=== PATIENT | female | born 2000 | race Caucasian/White ===

== ENCOUNTER 2023-08-02 17:15 | Emergency (ER) | payer BC, SELFPAY ==
[2023-08-02 17:21] VITALS: BP 143/79; PULSE 98; RESP 16; TEMP 37.4; O2SAT 98; BMI 25.8
--- NOTE | 2023-08-02 18:28 | ED_ITS ---
HPI - General Adult General Chief complaint: Sore Throat Stated complaint: Flu symptoms--sore throat, body aches Time Seen by Provider: 08/02/23 17:18 History of Present Illness HPI narrative: This 23-year-old female comes in reporting sore throat with body aches and feeling feverish. She does arrive here with normal vital signs. She did take some Tylenol prior to arrival. She states that symptoms began this morning. She went to her student health [facility] twice today because of these symptoms and was instructed to come here. She did have testing for strep, influenza, COVID, and mononucleosis. All of these returned negative. Related Data Home Medications ?Medication ?Instructions ?Recorded ?Confirmed fluoxetine 40 mg capsule 40 mg PO DAILY 08/02/23 08/02/23 Previous Rx's ?Medication ?Instructions ?Recorded amoxicillin 500 mg capsule 500 mg PO TID 7 days #21 caps 08/02/23 ketorolac 10 mg tablet 10 mg PO Q8H 5 days #15 tabs 08/02/23 Allergies Allergy/AdvReac Type Severity Reaction Status Date / Time No Known Drug Allergies Allergy Verified 08/02/23 17:21 Review of Systems Status of ROS: Reports: 10 or more systems reviewed and unremarkable except as noted in History and below Narrative: Constitutional: No weight gain or loss. Eyes: No discharge. No vision changes. HENT: No congestion, no ear pain. Cardiovascular: No chest pain, no palpitations. Respiratory: No shortness of breath, no wheezes, no cough. Gastrointestinal: No abdominal pain, no vomiting, no diarrhea. Genitourinary: No dysuria, no hematuria. Musculoskeletal: Normal range of motion. Skin: No rashes, no pruritis. Neurological: No dizziness, weakness, sensory change, speech change. Endo/Heme/Allergies: No bruising or bleeding. No polydipsia. Pysch: no suicidality, no anxiety, no insomnia. All other systems reviewed and are negative. Exam Narrative: Exam Narrative: Constitutional: Well-developed, well-nourished, no acute distress. HEENT: Normocephalic, atraumatic. Oropharynx shows bilateral tonsillar hypertrophy with some small amount of exudate. Neck: Normal range of motion. Nontender. Supple. Heart: Regular. No murmurs. Normal rate. Intact distal pulses. Lungs: Clear to auscultation. No chest discomfort. No wheezes, rhonchi, or rales. Abdomen: Normal bowel sounds. Nontender. No rebound tenderness. Genitalia: Deferred. Back: No midline tenderness. Normal range of motion. Extremities: Normal range of motion. No injury. Skin: Intact. No rash. Warm. No erythema or pallor. Neurologic: No altered sensation. No weakness. Alert and oriented. Psychiatric: No suicidality. No anxiety or depression. No insomnia. Nursing notes and vitals signs are reviewed. Const: Vital Signs, click to edit/add: Vital Signs - 24 hr 08/02/23 17:21 Temperature 99.4 F Pulse Rate [Pulse Oximeter] 98 Respiratory Rate 16 Blood Pressure [[facility] [place] [place]] 143/79 H Pulse Oximetry 98 Oxygen Delivery Me thod Room Air Course Vital Signs Vital signs: Initial Vital Signs Temperature 99.4 F 08/02/23 17:21 Temperature Source Temporal Artery Scan 08/02/23 17:21 Pulse Rate 98 08/02/23 17:21 Respiratory Rate 16 08/02/23 17:21 Blood Pressure 143/79 H 08/02/23 17:21 Blood Pressure Mean 100 08/02/23 17:21 Blood Pressure Position Sitting 08/02/23 17:21 Pulse Oximetry 98 08/02/23 17:21 Oxygen Delivery Method Room Air 08/02/23 17:21 Vital Signs Temperature 99.4 F 08/02/23 17:21 Pulse Rate 98 08/02/23 17:21 Respiratory Rate 16 08/02/23 17:21 Blood Pressure 143/79 H 08/02/23 17:21 Pulse Oximetry 98 08/02/23 17:21 Oxygen Delivery Method Room Air 08/02/23 17:21 Temperature 99.4 F 08/02/23 17:21 Pulse Rate 98 08/02/23 17:21 Respiratory Rate 16 08/02/23 17:21 Blood Pressure 143/79 H 08/02/23 17:21 Pulse Oximetry 98 08/02/23 17:21 Oxygen Delivery Method Room Air 08/02/23 17:21 Medical Decision Making MDM Narrative Medical decision making narrative: This patient comes in with sore throat and body aches as described above. She has had testing with negative results for strep and other viral infections. On exam she does have notable large tonsillar hypertrophy bilaterally. There is no asymmetry and no trismus or muffled voice. She does have exudate on the left tonsil. There is some suspicion of a tonsillitis here such that I did prescr ibed amoxicillin. She was prescribed a steroid but has not started this medicine yet. She did receive an oral dose of dexamethasone here. I also prescribed Toradol for additional pain relief. Discharge Plan Discharge Clinical Impression: Acute tonsillitis Patient Disposition: Home, Self-Care Condition: Stable Additional Instructions: Take medication as prescribed. Follow up with MD return if worsening. Prescriptions: New amoxicillin 500 mg capsule 500 mg PO TID 7 Days Qty: 21 0RF ketorolac 10 mg tablet 10 mg PO Q8H 5 Days Qty: 15 0RF No Action fluoxetine 40 mg capsule 40 mg PO DAILY Stand Alone Forms: [employer] Info Instructions
[2023-08-02] MEDS: dexAMETHasone 10 MG/ML inj PO (19:10)
== END 2023-08-02 19:11 | disposition home or self-care (01) ==
PROVIDERS: Emergency Provider Emergency Medicine Emergency Medical Services
DX: J03.90 Acute tonsillitis, unspecified (principal)
CPT/HCPCS: 99283; 99284; J1100